=== PATIENT | male | born 1945 | race African-American/Black ===

== ENCOUNTER 2017-07-13 14:11 | Emergency (ER) | payer OTHER, MEDICARE ==
--- NOTE | 2017-07-13 14:39 | ER Document Report ---
ED Medical Screen (RME) - General Chief Complaint: Arm Pain Stated Complaint: LEFT ARM PAIN Time Seen by Provider: 07/13/17 14:35 Mode of Arrival: Ambulatory Information source: Patient TRAVEL OUTSIDE OF THE [place] IN LAST 30 DAYS: No - HPI Patient complains to provider of: left arm pain Notes: 07/13/17 14:37 Patient is here with complaints of left arm pain. States the pain is been present for about 5 days now. He denies any specific injury or trauma to the arm. He was seen in urgent care and had x-rays which he states were negative. He was given Flexeril and Neurontin, but states the pain seems to be getting worse. No chest pain or shortness of breath. No fever. Physical exam: No distress. Normal pulse and sensation to the left upper extremity. An initial examination was made on the patient as part of the triage process, and it was determined a more comprehensive evaluation was necessary. Initial labs were ordered and patient was transferred to another provider in the ED who assumed care and finished evaluation and plan. - Related Data Allergies/Adverse Reactions: CLOROX BLEACH Adverse Reaction (Uncoded 05/15/15 08:24) Generalized Itching DETERGENTS Adverse Reaction (Uncoded 05/15/15 08:24) Generalized Itching Past Medical History - Past Medical History Cardiac Medical History: Reports: Hx Coronary Artery Disease - HIGH CHOLESTEROL , Hx Hypercholesterolemia, Hx Hypertension - [place] Denies: Hx Heart Attack Pulmonary Medical History: Denies: Hx Asthma, Hx Bronchitis, Hx COPD, Hx Pneumonia Neurological Medical History: Denies: Hx Cerebrovascular Accident, Hx Seizures Endocrine Medical History: Reports: Hx Diabetes Mellitus Type 2 GI Medical History: Reports: Hx Diverticulitis Musculoskeltal Medical History: Denies Hx Arthritis Psychiatric Medical History: Reports: Hx Depression, Hx Schizophrenia - Immunizations Hx Diphtheria, Pertussis, Tetanus Vaccination: Yes Physical Exam - Vital signs Vitals: Temp Pulse Resp BP Pulse Ox 98.6 F 80 16 150/74 H 94 07/13/17 14:16 07/13/17 14:16 07/13/17 14:16 07/13/17 14:16 07/13/17 14:16 Course - Vital Signs Vital signs: Temp Pulse Resp BP Pulse Ox 98.6 F 80 16 150/74 H 94 07/13/17 14:16 07/13/17 14:16 07/13/17 14:16 07/13/17 14:16 07/13/17 14:16
[2017-07-13] MEDS ORDERED: ASPIRIN 81 MG TABLET, CHEWABLE PO ONE (15:19)
[2017-07-13] MEDS ORDERED: HYDROCODONE/ACETAMINOPHEN 5-325 MG TABLET PO ONE (15:20)
--- NOTE | 2017-07-13 15:28 | ER Document Report ---
ED Extremity Problem, Upper - General Chief Complaint: Arm Pain Stated Complaint: LEFT ARM PAIN Time Seen by Provider: 07/13/17 14:35 Mode of Arrival: Ambulatory Information source: Patient Notes: Patient presents complaining of left shoulder and upper arm pain for the past 5 days. Patient states that in the past he has had occasional left shoulder pain. Patient denies any injury. Patient denies any chest pain or shortness of breath. Patient states that he did go to an urgent care 3 days ago was given a prescription for gabapentin. Patient denies any improvement of his symptoms. TRAVEL OUTSIDE OF THE [place] IN LAST 30 DAYS: No - HPI Patient complains to provider of: Pain, Left, Shoulder Onset: Other - 5 days Recent injury: No Quality of pain: Achy Severity of pain: Still present Pain Level: 5 Associated symptoms: denies: Chest pain/discomfort, Hurts to breathe, Nausea, Neck pain, Short of breath, Vomiting Exacerbated by: Movement Relieved by: Rest Similar symptoms previously: Yes Recently seen / treated by doctor: Yes - Related Data Allergies/Adverse Reactions: CLOROX BLEACH Adverse Reaction (Uncoded 05/15/15 08:24) Generalized Itching DETERGENTS Adverse Reaction (Uncoded 05/15/15 08:24) Generalized Itching Past Medical History - General Information source: Patient - Social History Smoking Status: Current Every Day Smoker Smoking Education Provided: Yes Frequency of alcohol use: None Drug Abuse: None Occupation: none Lives with: Family Family History: Reviewed & Not Pertinent Patient has suicidal ideation: No Patient has homicidal ideation: No - Past Medical History Cardiac Medical History: Reports: Hx Hypercholesterolemia, Hx Hypertension Denies: Hx Heart Attack Pulmonary Medical History: Denies: Hx Asthma, Hx Bronchitis, Hx COPD, Hx Pneumonia Neurological Medical History: Denies: Hx Cerebrovascular Accident, Hx Seizures Endocrine Medical History: Reports: Hx Diabetes Mellitus Type 2 Renal/ Medical History: Denies: Hx Peritoneal Dialysis Malignancy Medical History: Reports Other - gastric GI Medical History: Reports: Hx Diverticulitis Musculoskeltal Medical History: Denies Hx Arthritis Psychiatric Medical History: Reports: Hx Depression, Hx Schizophrenia Past Surgical History: Reports: Hx Bowel Surgery - Splenectomy, stomach tumor removed, portion of pancreas removed - Immunizations Hx Diphtheria, Pertussis, Tetanus Vaccination: Yes Review of Systems - Review of Systems Constitutional: No symptoms reported. denies: Fever EENT: No symptoms reported Cardiovascular: No symptoms reported. denies: Chest pain, Dizziness Respiratory: No symptoms reported. denies: Cough, Short of breath Gastrointestinal: No symptoms reported. denies: Abdominal pain, Nausea, Vomiting Genitourinary: No symptoms reported Male Genitourinary: No symptoms reported Musculoskeletal: Joint pain - left shoulder, Muscle pain - LUE. denies: Back pain Skin: No symptoms reported Hematologic/Lymphatic: No symptoms reported Neurological/Psychological: No symptoms reported Physical Exam - Vital signs Vitals: Temp Pulse Resp BP Pulse Ox 98.6 F 80 16 150/74 H 94 07/13/17 14:16 07/13/17 14:16 07/13/17 14:16 07/13/17 14:16 07/13/17 14:16 - General General appearance: Appears well, Alert In distress: None - HEENT Head: Normocephalic, Atraumatic Eyes: Normal Conjunctiva: Normal Nasal: Normal Mouth/Lips: Normal Mucous membranes: Normal Neck: Normal, Supple. No: Lymphadenopathy - Respiratory Respiratory status: No respiratory distress Chest status: Nontender Breath sounds: Normal. No: Rales, Rhonchi, Stridor, Wheezing Chest palpation: Normal - Cardiovascular Rhythm: Regular Heart sounds: S1 appreciated, S2 appreciated Murmur: No Pulses: Normal: Radial - Abdominal Inspection: Normal Distension: No distension Bowel sounds: Normal Tenderness: Nontender - Back Back: Normal, Nontender. No: CVA tenderness, Vertebra tenderness - Extremities General upper extremity: Tender - r shoulder, Normal strength General lower extremity: Normal inspection, Normal strength Shoulder: Tender. No: Dislocation Arm: Tender - Left shoulder generalized tenderness left upper arm tenderness, pain reproduced with extension, abduction of shoulder and with crossing arm across his chest.. No: Deformity Elbow: Normal, Nontender Forearm: Normal, Nontender Wrist: Normal, Nontender - Neurological Neuro grossly intact: Yes Cognition: Normal Mindy Coma Scale Eye Opening: Spontaneous Mindy Coma Scale Verbal: Oriented [place] Coma Scale Motor: Obeys Commands [place] Coma Scale Total: 15 - Psychological Associated symptoms: Normal affect, Normal mood - Skin Skin Temperature: Warm Skin Moisture: Dry Skin Color: Normal Course - Re-evaluation Re-evalutation: 07/13/17 16:59 Patient's x-ray with arthritic findings involving his left shoulder joint. Patient without any chest pain, dyspnea, or back tenderness. The patient has left arm pain that is not suggestive of pulmonary embolus, cardiac ischemia, aortic dissection, or other serious etiology. Given the extremely low risk of these diagnoses for the test in evaluation for these possibilities does not appear to be indicated at this time. Patient has been instructed to return if the symptoms worsen or change in any way. - Vital Signs Vital signs: Temp Pulse Resp BP Pulse Ox 98.6 F 80 16 150/74 H 94 07/13/17 14:16 07/13/17 14:16 07/13/17 14:16 07/13/17 14:16 07/13/17 14:16 - Laboratory Result Diagrams: 07/13/17 15:30 07/13/17 15:30 Laboratory results interpreted by me: 07/13/17 07/13/17 15:30 15:30 WBC 11.3 H RDW 14.9 H Carbon Dioxide 31 H Glucose 148 H Labs- Entire Visit 07/13/17 07/13/17 07/13/17 15:30 15:30 15:30 WBC 11.3 H RBC 4.92 Hgb 14.2 Hct 42.5 MCV 86 MCH 29.0 MCHC 33.5 RDW 14.9 H Plt Count 415 Seg Neutrophils % 51.8 Lymphocytes % 37.7 Monocytes % 6.1 Eosinophils % 2.8 Basophils % 1.6 Absolute Neutrophils 5.9 Absolute Lymphocytes 4.3 Absolute Monocytes 0.7 Absolute Eosinophils 0.3 Absolute Basophils 0.2 Sodium 141.3 Potassium 3.8 Chloride 100 Carbon Dioxide 31 H Anion Gap 10 BUN 20 Creatinine 1.02 Est GFR ( Amer) > 60 Est GFR (Non-Af Amer) > 60 Glucose 148 H Calcium 9.5 Magnesium 1.7 Total Bilirubin 0.3 Direct Bilirubin 0.3 Neonat Total Bilirubin Not Reportable Neonat Direct Bilirubin Not Reportable Neonat Indirect Bili Not Reportable AST 38 ALT 33 Alkaline Phosphatase 83 Troponin I 0.014 Total Protein 7.5 Albumin 4.2 - Diagnostic Test Radiology reviewed: Reports reviewed Discharge - Discharge Clinical Impression: Arthritis Left shoulder pain Qualifiers: Chronicity: unspecified Qualified Code(s): M25.512 - Pain in left shoulder Condition: Stable Disposition: HOME, SELF-CARE Instructions: Arthritis ([facility]), Oral Narcotic Medication ([facility]) Additional Instructions: Return immediately for any new or worsening symptoms Followup with your primary care provider, call tomorrow to make a followup appointment Follow-up with orthopedic doctor for further evaluation of shoulder joint pain Prescriptions: Hydrocodone/Acetaminophen [Isabella 5-325 Tablet] 1 each PO Q8 PRN #12 tablet PRN Reason: Forms: Smoking Cessation Education Referrals: OBED GILBERT MD [Primary Care Provider] - Follow up tomorrow [facility] [Provider Group] - Follow up as needed
[2017-07-13 15:59] LABS: ABSOLUTE BASOPHILS # (AUTO) 0.2 10^3/uL (0.0-0.2); ABSOLUTE EOSINOPHILS # (AUTO) 0.3 10^3/uL (0.0-0.6); ABSOLUTE LYMPHOCYTES (AUTO) 4.3 10^3/uL (0.5-4.7); ABSOLUTE MONOCYTES (AUTO) 0.7 10^3/uL (0.1-1.4); ABSOLUTE NEUT (AUTO) 5.9 10^3/uL (1.7-8.2); BASOPHILS % (AUTO) 1.6 % (0-2); EOSINOPHILS % (AUTO) 2.8 % (0-6); HEMATOCRIT 42.5 % (37.9-51.0); HEMOGLOBIN 14.2 g/dL (13.5-17.0); LYMPHOCYTES % (AUTO) 37.7 % (13-45); MEAN CORPUSCULAR HGB CONC 33.5 g/dL (32.0-36.0); MEAN CORPUSCULAR VOLUME 86 fl (80-97); MONOCYTES % (AUTO) 6.1 % (3-13); PLATELET COUNT 415 10^3/uL (150-450); RED BLOOD COUNT 4.92 10^6/uL (4.35-5.55); RED CELL DISTRIBUTION WIDTH 14.9 % (11.5-14.0); SEGMENTED NEUTROPHILS % (AUTO) 51.8 % (42-78); TOTAL CELLS COUNTED % (AUTO) 100 %; WHITE BLOOD COUNT 11.3 10^3/uL (4.0-10.5)
--- NOTE | 2017-07-13 16:06 | RADIOLOGY REPORT (SQ) ---
EXAM DESCRIPTION: CHEST 2 VIEWS COMPLETED DATE/TIME: 07/13/2017 3:39 pm REASON FOR STUDY: left arm pain COMPARISON: November 2013 EXAM PARAMETERS: NUMBER OF VIEWS: two views TECHNIQUE: Digital Frontal and Lateral radiographic views of the chest acquired. RADIATION DOSE: NA LIMITATIONS: none FINDINGS: LUNGS AND PLEURA: No opacities, masses or pneumothorax. No pleural effusion. MEDIASTINUM AND HILAR STRUCTURES: No masses or contour abnormalities. HEART AND VASCULAR STRUCTURES: Heart normal size. No evidence for failure. BONES: No acute findings. HARDWARE: None in the chest. OTHER: No other significant finding. IMPRESSION: NO ACUTE RADIOGRAPHIC FINDING IN THE CHEST. TECHNICAL DOCUMENTATION: JOB ID: [id number] [employer]- All Rights Reserved Reading location - IP/workstation name: [email or web address]
--- NOTE | 2017-07-13 16:07 | RADIOLOGY REPORT (SQ) ---
EXAM DESCRIPTION: SHOULDER LEFT 2 OR MORE VIEWS COMPLETED DATE/TIME: 07/13/2017 3:39 pm REASON FOR STUDY: left shoulder pain COMPARISON: None. NUMBER OF VIEWS: Three view. TECHNIQUE: Internal rotation, external rotation, and Y view images acquired of the left shoulder. LIMITATIONS: None. FINDINGS: Mild AC joint arthropathy. Glenohumeral joint is intact. Several loose bodies overlying the glenohumeral joint. IMPRESSION: AC and glenohumeral joint arthropathy. Loose bodies. TECHNICAL DOCUMENTATION: JOB ID: [id number] [employer]- All Rights Reserved Reading location - IP/workstation name: [email or web address]
[2017-07-13 16:31] LABS: ALANINE AMINOTRANSFERASE 33 U/L (21-72); ALBUMIN 4.2 g/dL (3.5-5.0); ALKALINE PHOSPHATASE 83 U/L (38-126); ANION GAP 10 (5-19); ASPARTATE AMINO TRANSFERASE 38 U/L (17-59); BILIRUBIN,DIRECT 0.3 mg/dL (0.0-0.4); BILIRUBIN,TOTAL 0.3 mg/dL (0.2-1.3); BLOOD UREA NITROGEN 20 mg/dL (7-20); CALCIUM 9.5 mg/dL (8.4-10.2); CARBON DIOXIDE 31 mmol/L (22-30); CHLORIDE 100 mmol/L (98-107); GLUCOSE 148 mg/dL (75-110); POTASSIUM 3.8 mmol/L (3.6-5.0); SODIUM 141.3 mmol/L (137-145); TOTAL PROTEIN 7.5 g/dL (6.3-8.2)
[2017-07-13 17:20] VITALS: BP 146/73
--- NOTE | 2017-07-13 19:25 | EKG REPORT ---
SEVERITY:- BORDERLINE ECG - SINUS RHYTHM LEFT AXIS DEVIATION BORDERLINE T WAVE ABNORMALITIES : Confirmed by: Tian Forrester MD 13-Jul-2017 19:25:04
== END 2017-07-13 17:20 | disposition home or self-care (01) ==
LOC: ER 14:11
DX: M25.512 Pain in left shoulder (principal); M19.90 Unspecified osteoarthritis, unspecified site; F17.200 Nicotine dependence, unspecified, uncomplicated; E78.00 Pure hypercholesterolemia, unspecified; I10 Essential (primary) hypertension; E11.9 Type 2 diabetes mellitus without complications
CPT/HCPCS: 36415; 71046; 80053; 83735; 84484; 85025; 93005; 93010; 99284

== ENCOUNTER → 2017-10-16 | Outpatient (CLI) | payer OTHER, MEDICARE | LOC: OD 11:35 | PROVIDERS: ATTEND Internal Medicine Medical Oncology | DX: Z85.09 Personal history of malignant neoplasm of other digestive organs (principal); Z90.81 Acquired absence of spleen ==

== ENCOUNTER 2018-02-15 08:43 | Day surgery (SDC) | payer OTHER, MEDICARE ==
[~2018-02-15 08:43] MED LIST: KETOROLAC TROMETHAMINE 0.45% 4 DROP/0.4 ML DROPERETTE OD PRN
[2018-02-15] MEDS ORDERED: EPINEPHRINE INJ/PF 1 MG/1 ML AMPULE ONE (08:47)
[2018-02-15] MEDS ORDERED: LIDOCAINE 1%/PHENYLEPHRINE 1.5% 1 ML VIAL ONE (08:47)
[2018-02-15] MEDS ORDERED: CHONDR SU A NA/HYALUR INTRAOC KIT (SURGICARE) ONE (08:47)
[2018-02-15] MEDS ORDERED: MIDAZOLAM 2 MG/2 ML INJ ONE (09:00)
[2018-02-15] MEDS: TROPICAMIDE 1% OPH SOLN 3 ML OD PRN ×3 (09:27→09:47)
[2018-02-15] MEDS: CYCLOPENTOLATE 0.2%/PHENYLEPHRINE 1% OPH SOLN 2 ML OD PRN ×3 (09:27→09:47)
[2018-02-15] MEDS: BESIFLOXACIN HCL 0.6% OPH SUSP 5 ML BOTTLE OD PRN ×4 (09:27→10:31)
[2018-02-15] MEDS: TETRACAINE HCL 0.5% OPH SOLN 4 ML OD PRN ×3 (09:28→10:08)
[2018-02-15] MEDS ORDERED: TRYPAN BLUE 0.06 % OPH SOLN 0.5 ML DISP.SYRIN ONE (11:24)
--- NOTE | 2018-02-16 07:37 | [facility] OPERATIVE REPORT E ---
[facility] Operative Report NAME: BAYLEE DE LA O AGE: 72Y DATE OF SURGERY: 02/15/2018 ROOM: PREOPERATIVE DIAGNOSIS: CATARACT, RIGHT EYE. POSTOPERATIVE DIAGNOSIS: CATARACT, RIGHT EYE. OPERATION: Cataract extraction with insertion of an IOL of the right eye. SURGEON: WANG TORRES M.D. ANESTHESIA: Topical. PROCEDURE: After obtaining appropriate consent, the patient's right eye was prepped and draped in sterile fashion as well as the surgeon in a sterile manner and cataract surgery was started. First a paracentesis blade was used to make a side-port incision. Viscoelastic was used to inflate the anterior chamber. Next a 2.4 mm incision was made with a 2.4 mm blade, clear corneal temporally. A continuous capsulorrhexis was made using a cystotome and Utrata forceps. Following this hydrodissection was carried out to make the lens fully loose and mobile and it was rotated 90 degrees. Following this, a sxzdie-tuq-lwqsowi technique was used to phacoemulsify the lens with a CDE of 6.45. The remaining cortex was removed with irrigation/aspiration. Provisc was instilled into the capsular bag to inflate the bag. A SN60WF, 20.0 diopter lens was placed. The remaining viscoelastic material was removed with irrigation/aspiration. Following this, the incision was found to be watertight. Besivance was instilled into the eye and a protective shield was placed over the eye. The patient returned to the postoperative recovery in stable condition. DICTATING PHYSICIAN: WANG TORRES M.D. [id number] PHY#: [id number] 1941 ID: [id number] JOB#: [id number] ACCT: [id number] cc:WANG TORRES M.D. >
--- NOTE | 2018-02-16 07:43 | [facility] DISCHARGE SUMMARY E ---
[facility] Discharge Summary NAME: BAYLEE DE LA O AGE: 72Y ADMITTED: 02/15/2018 DISCHARGED: 02/15/2018 HISTORY: This is a 72-year-old patient who underwent complex cataract extraction of the right eye with the use of Trypan blue dye. He underwent complex cataract extraction due to poor visualization of the anterior capsule due to dense cortical spoking. DIAGNOSIS: Other age-related cataract of the right eye. HOSPITAL COURSE: He underwent surgery because he was having difficulty driving at night secondary to glare from headlights. DISCHARGE INSTRUCTIONS: He should be on a regular diet. No bending at his waist. No heavy lifting. He should use his Vigamox, Ketorolac, and Predforte at 3 p.m. and 8 p.m. and sleep with a rigid shield, and I will see him for his one day postoperative tomorrow. DICTATING PHYSICIAN: WANG TORRES M.D. [id number] PHY#: [id number] 1941 ID: [id number] JOB#: [id number] ACCT: [id number] cc:WANG TORRES M.D. >
--- NOTE | 2018-02-20 13:34 | [facility] DISCHARGE SUMMARY E ---
[facility] Discharge Summary NAME: BAYLEE DE LA O AGE: 72Y ADMITTED: 02/15/2018 DISCHARGED: 02/15/2018 ADDENDUM: Other age-related cataract of the right eye. PROCEDURE: Complex cataract extraction with use of Trypan blue dye. DESCRIPTION OF PROCEDURE: Prior to making the capsulorrhexis, Trypan blue dye was used to stain the anterior capsule due to poor visualization of the anterior capsule. DICTATING PHYSICIAN: WANG TORRES M.D. [id number] PHY#: [id number] 1941 ID: [id number] JOB#: [id number] ACCT: [id number] cc:WANG TORRES M.D. >
== END 2018-02-15 11:16 | disposition home or self-care (01) ==
LOC: SC 08:43
PROVIDERS: ATTEND Internal Medicine
DX: H25.89 Other age-related cataract (principal); H04.123 Dry eye syndrome of bilateral lacrimal glands; H52.4 Presbyopia; E11.9 Type 2 diabetes mellitus without complications; I10 Essential (primary) hypertension; E78.00 Pure hypercholesterolemia, unspecified; K21.9 Gastro-esophageal reflux disease without esophagitis; M19.90 Unspecified osteoarthritis, unspecified site; R01.1 Cardiac murmur, unspecified; F17.210 Nicotine dependence, cigarettes, uncomplicated; Z79.899 Other long term (current) drug therapy; I20.9 Angina pectoris, unspecified; Z85.07 Personal history of malignant neoplasm of pancreas
CPT/HCPCS: 66982; 82962; V2632; J2250; J3490 ×3; J0171; J2370

== ENCOUNTER 2018-03-08 08:55 | Day surgery (SDC) | payer OTHER, MEDICARE ==
[~2018-03-08 08:55] MED LIST changes: -KETOROLAC TROMETHAMINE 0.45% 4 DROP/0.4 ML DROPERETTE OD PRN; +KETOROLAC TROMETHAMINE 0.45% 4 DROP/0.4 ML DROPERETTE OS PRN; +MIDAZOLAM 2 MG/2 ML INJ ONE
[2018-03-08] MEDS: BESIFLOXACIN HCL 0.6% OPH SUSP 5 ML BOTTLE OS PRN ×4 (09:30→10:19)
[2018-03-08] MEDS: CYCLOPENTOLATE 0.2%/PHENYLEPHRINE 1% OPH SOLN 2 ML OS PRN ×3 (09:30→09:50)
[2018-03-08] MEDS: TROPICAMIDE 1% OPH SOLN 3 ML OS PRN ×3 (09:30→09:51)
[2018-03-08] MEDS: TETRACAINE HCL 0.5% OPH SOLN 4 ML OS PRN ×4 (09:30→10:00)
[2018-03-08] MEDS ORDERED: TRYPAN BLUE 0.06 % OPH SOLN 0.5 ML DISP.SYRIN ONE (09:44)
[2018-03-08] MEDS: LIDOCAINE 1%/PHENYLEPHRINE 1.5% 1 ML VIAL ONE ×2 (10:00→10:10)
[2018-03-08] MEDS: EPINEPHRINE INJ/PF 1 MG/1 ML AMPULE ONE ×2 (10:01→10:10)
[2018-03-08] MEDS: CHONDR SU A NA/HYALUR INTRAOC KIT (SURGICARE) ONE ×2 (10:01→10:10)
--- NOTE | 2018-03-09 11:54 | [facility] DISCHARGE SUMMARY E ---
[facility] Discharge Summary NAME: BAYLEE DE LA O AGE: 72Y ADMITTED: 03/08/2018 DISCHARGED: 03/08/2018 HISTORY: This is a 72-year-old male who underwent cataract extraction of the left eye. DIAGNOSIS: Cataract, left eye. HOSPITAL COURSE: He underwent surgery because he was having difficulty driving at night secondary to glare from headlights and difficulty reading small print. He is to be on a regular diet. No bending at his waist. No heavy lifting. He should use his Vigamox, Acular, and Predforte at 3 p.m. and 8 p.m. and sleep with a rigid shield, and I will see him for his 1 day postoperative tomorrow. DICTATING PHYSICIAN: WANG TORRES M.D. [id number] PHY#: [id number] 2010 ID: [id number] JOB#: [id number] ACCT: [id number] cc:WANG TORRES M.D. >
--- NOTE | 2018-03-09 11:54 | [facility] OPERATIVE REPORT E ---
[facility] Operative Report NAME: BAYLEE DE LA O AGE: 72Y DATE OF SURGERY: 03/08/2018 ROOM: PREOPERATIVE DIAGNOSIS: CATARACT, LEFT EYE. POSTOPERATIVE DIAGNOSIS: CATARACT, LEFT EYE. OPERATION: Cataract extraction with insertion of an IOL of the left eye. SURGEON: WANG TORRES M.D. ANESTHESIA: Topical. PROCEDURE: After obtaining appropriate consent, the patient's left eye was prepped and draped in sterile fashion as well as the surgeon in a sterile manner and cataract surgery was started. First a paracentesis blade was used to make a side-port incision. Viscoelastic was used to inflate the anterior chamber. Next a 2.4 mm incision was made with a 2.4 mm blade, clear corneal temporally. A continuous capsulorrhexis was made using a cystotome and Utrata forceps. Following this hydrodissection was carried out to make the lens fully loose and mobile and it was rotated 90 degrees. Following this, a hrseay-lgu-unuzfai technique was used to phacoemulsify the lens with a CDE of 8.09. The remaining cortex was removed with irrigation/aspiration. Provisc was instilled into the capsular bag to inflate the bag. A SN60WF, 19.5 diopter lens was placed. The remaining viscoelastic material was removed with irrigation/aspiration. Following this, the incision was found to be watertight. Besivance was instilled into the eye and a protective shield was placed over the eye. The patient returned to the postoperative recovery in stable condition. DICTATING PHYSICIAN: WANG TORRES M.D. [id number] PHY#: [id number] 2010 ID: [id number] JOB#: [id number] ACCT: [id number] cc:WANG TORRES M.D. >
== END 2018-03-08 11:09 | disposition home or self-care (01) ==
LOC: SC 08:55
PROVIDERS: ATTEND Internal Medicine
DX: H25.89 Other age-related cataract (principal); Z96.1 Presence of intraocular lens; F17.210 Nicotine dependence, cigarettes, uncomplicated; I10 Essential (primary) hypertension; K21.9 Gastro-esophageal reflux disease without esophagitis; E11.9 Type 2 diabetes mellitus without complications; I47.1 Supraventricular tachycardia; Z79.4 Long term (current) use of insulin; Z79.82 Long term (current) use of aspirin; Z79.899 Other long term (current) drug therapy
CPT/HCPCS: 66984; 82962; V2632; J2250; J3490 ×3; J0171; J2370; 142

== ENCOUNTER → 2018-05-07 | Outpatient (CLI) | payer MEDICARE, OTHER ==
--- NOTE | 2018-05-07 09:51 | RADIOLOGY REPORT (SQ) ---
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 Images reviewed with lung, soft tissue and bone windows. Reconstructed coronal a nd sagittal MPR images reviewed. All images stored on PACS. CT scan of the abdomen and pelvis performed with intravenous and with oral contrastusing helical scan jose a technique with dynamic intravenous contrast injection. Images reviewed with lung, soft tissue a nd bone windows. Reconstructed coronal and sagittal MPR images reviewed. Delayed images for evaluat ion of the urinary system also acquired and evaluated. All images stored on PACS. All CT scanners at this facility use dose modulation, iterative reconstruction, and/or weight based d osing when appropriate to reduce radiation dose to as low as reasonably achievable (ALARA). [facility]: Dose Right [facility]: CareDose [facility]: Dose Right [facility]: Teradose 4D [facility]: [employer] RADIATION DOSE: CT Rad equipment meets quality standard of care and radiation dose reduction techniq ues were employed. CTDIvol: 6.9 - 8.2 mGy. DLP: 1131 mGy-cm. . LIMITATIONS: None. FINDINGS: CHEST: LUNGS AND PLEURA: No opacities, nodules, masses. No pneumothorax. No effusions. HILAR AND MEDIASTINAL STRUCTURES: No identified masses or abnormal nodes. HEART AND VASCULAR STRUCTURES: No aneurysm or dissection. No central pulmonary emboli. No pericardi al effusion. Moderate coronary artery calcifications HARDWARE: None. THYROID AND OTHER SOFT TISSUES: Mild gynecomastia BONES: No significant finding. OTHER: Small hiatal hernia ABDOMEN AND PELVIS: LIVER: Fatty liver. No dilated ducts. Normal enhancement of the portal vein and hepatic veins. No masses SPLEEN: Splenectomy PANCREAS: No masses. No significant calcifications. No adjacent inflammation or peripancreatic fluid collections. Pancreatic duct not dilated. GALLBLADDER: No identified stones by CT criteria. No inflammatory changes to suggest cholecystitis. ADRENAL GLANDS: No significant masses or asymmetry. RIGHT KIDNEY AND URETER: No solid masses. No significant calcification. No hydronephrosis or hydroure ter. LEFT KIDNEY AND URETER: No solid masses. No significant calcification. No hydronephrosis or hydrouret er. AORTA AND VESSELS: No aneurysm. No dissection. Renal arteries, SMA, celiac origins calcified without high-grade stenosis. RETROPERITONEUM: No retroperitoneal adenopathy, hemorrhage or masses. BOWEL AND PERITONEAL CAVITY: Patient is post partial gastrectomy with a row of surgical salvador at t he stomach fundus. Patient drank oral contrast. No CT evidence of bowel obstruction or free intrape ritoneal air or fluid. Periampullary duodenum diverticulum. Descending and sigmoid colon diverticul i without CT signs of acute diverticulitis APPENDIX: Normal. ABDOMINAL WALL: No masses. No hernias. PELVIS: No mass or free fluid. Normal bladder. BONES: Degenerative changes in the lower lumbar facet joints OTHER: No other significant finding. IMPRESSION: Post partial gastrectomy and splenectomy No CT evidence of recurrent or metastatic gastrointestinal stromal tumor TECHNICAL DOCUMENTATION: JOB ID: [id number] Quality ID # [id number]: Final reports with documentation of one or more dose reduction techniques (e.g., Au tomated exposure control, adjustment of the mA and/or kV according to patient size, use of iterative reconstruction technique) 2010 [employer]- All Rights Reserved Reading location - IP/workstation name: [email or web address]
== END ==
LOC: RAD 07:38
PROVIDERS: ATTEND Internal Medicine Medical Oncology
DX: C49.A2 Gastrointestinal stromal tumor of stomach (principal); I25.10 Atherosclerotic heart disease of native coronary artery without angina pectoris; K44.9 Diaphragmatic hernia without obstruction or gangrene
CPT/HCPCS: 71260; 74177; 82565

== ENCOUNTER → 2019-02-12 | Outpatient (CLI) | payer MEDICARE, OTHER ==
--- NOTE | 2019-02-12 09:32 | RADIOLOGY REPORT (SQ) ---
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 Images reviewed with lung, soft tissue, and bone windows. Reconstructed coronal and sagittal MPR images reviewed. Delayed images for evaluat ion of the urinary system also acquired and evaluated. All images stored on PACS. All CT scanners at this facility use dose modulation, iterative reconstruc tion, and/or weight based dosing when appropriate to reduce radiation dose to as low as reasonably ac hievable (ALARA). [facility]: Dose Right [facility]: CareDose [facility]: Dose Right [facility]: Teradose 4D [facility]: R&V CONTRAST TYPE AND DOSE: contrast/concentration: Isovue 350.00 mg/ml; Total Contrast Delivered: 100.0 ml; Total Saline Delivered: 72.0 ml RENAL FUNCTION: Creatinine 1.2 RADIATION DOSE: CT Rad equipment meets quality standard of care and radiation dose reduction techniq ues were employed. CTDIvol: 12.3 - 12.4 mGy. DLP: 838 mGy-cm. . LIMITATIONS: None. FINDINGS: LOWER CHEST: No significant findings. No nodules or infiltrates. LIVER: Hepatic steatosis. No focal lesions. No intrahepatic ductal dilation. SPLEEN: Surgically absent. PANCREAS: No masses. No significant calcifications. No adjacent inflammation or peripancreatic fluid collections. Pancreatic duct not dilated. GALLBLADDER: No identified stones by CT criteria. No inflammatory changes to suggest cholecystitis. ADRENAL GLANDS: No significant masses or asymmetry. RIGHT KIDNEY AND URETER: No solid masses. No significant calcifications. No hydronephrosis or pro ximal hydroureter. LEFT KIDNEY AND URETER: No solid masses. No significant calcifications. No hydronephrosis or prox imal hydroureter. AORTA AND VESSELS: No aneurysm. No dissection. Renal arteries, SMA, celiac without stenosis. RETROPERITONEUM: No retroperitoneal adenopathy, hemorrhage or masses. BOWEL AND PERITONEAL CAVITY: Postsurgical changes from partial gastrectomy. No discrete focal bowel wall thickening. Scattered colonic diverticula. No evidence of intestinal obstruction. APPENDIX: Partially visualized ABDOMINAL WALL: No masses. Small fat containing umbilical hernia. BONES: No acute bony abnormality. No discrete lytic or blastic osseous lesions. Lower lumbar facet arthropathy. OTHER: No other significant finding. IMPRESSION: 1. Postsurgical changes from the splenectomy and partial gastrectomy. No evidence of r esidual or recurrent disease within the abdomen. 2. No evidence of acute intra-abdominal process. 3. Hepatic steatosis. TECHNICAL DOCUMENTATION: JOB ID: [id number] Quality ID # [id number]: Final reports with documentation of one or more dose reduction techniques (e.g., Au tomated exposure control, adjustment of the mA and/or kV according to patient size, use of iterative reconstruction technique) 2010 [employer]- All Rights Reserved Reading location - IP/workstation name: [email or web address]
== END ==
LOC: RAD 08:23
PROVIDERS: ATTEND Internal Medicine Hematology & Oncology
DX: C49.A0 Gastrointestinal stromal tumor, unspecified site (principal); K76.0 Fatty (change of) liver, not elsewhere classified
CPT/HCPCS: 74160; 82565

== ENCOUNTER 2019-05-11 21:48 | Inpatient (IN) | payer OTHER, MEDICARE ==
[2019-05-11 22:14] LABS: HEMATOCRIT 39.4 % (37.9-51.0); HEMOGLOBIN 13.1 g/dL (13.5-17.0); MEAN CORPUSCULAR HEMOGLOBIN 30.1 pg (27.0-33.4); MEAN CORPUSCULAR HGB CONC 33.2 g/dL (32.0-36.0); MEAN CORPUSCULAR VOLUME 91 fl (80-97); PLATELET COUNT 676 10^3/uL (150-450); RED BLOOD COUNT 4.35 10^6/uL (4.35-5.55); RED CELL DISTRIBUTION WIDTH 13.8 % (11.5-14.0); WHITE BLOOD COUNT 24.9 10^3/uL (4.0-10.5)
[2019-05-11 22:16] LABS: INTERNATIONAL RATION (INR) 1.04; PROTHROMBIN TIME 13.6 SEC (11.4-15.4)
[2019-05-11 22:30] LABS: ALBUMIN 4.1 g/dL (3.5-5.0); ALKALINE PHOSPHATASE 115 U/L (38-126); ANION GAP 11 (5-19); ASPARTATE AMINO TRANSFERASE 36 U/L (17-59); BILIRUBIN,DIRECT 0.1 mg/dL (0.0-0.4); BILIRUBIN,TOTAL 0.4 mg/dL (0.2-1.3); BLOOD UREA NITROGEN 17 mg/dL (7-20); CALCIUM 9.3 mg/dL (8.4-10.2); CARBON DIOXIDE 25 mmol/L (22-30); CHLORIDE 101 mmol/L (98-107); GLUCOSE 182 mg/dL (75-110); POTASSIUM 5.4 mmol/L (3.6-5.0); TOTAL PROTEIN 7.4 g/dL (6.3-8.2)
[2019-05-11 22:37] LABS: VENOUS BLOOD BASE EXCESS 0.5 mmol/L; VENOUS BLOOD HCO3 23.7 mmol/L (20-32); VENOUS BLOOD PCO2 34.1 mmHg (35-63); VENOUS BLOOD PH 7.46 (7.30-7.42)
[2019-05-11 22:47] LABS: ABSOLUTE LYMPHOCYTES# (MANUAL) 2.5 10^3/uL (0.5-4.7); ABSOLUTE MONOCYTES # (MANUAL) 0.5 10^3/uL (0.1-1.4); BASOPHILS % (MANUAL) 0 % (0-2); EOSINOPHILS % (MANUAL) 0 % (0-6); LYMPHOCYTES % (MANUAL) 6 % (13-45); MONOCYTES % (MANUAL) 2 % (3-13); SEGMENTED NEUTROPHILS % (MAN) 88 % (42-78); TOTAL CELLS COUNTED 100
[2019-05-11 22:49] LABS: OVALOCYTES SLIGHT; PLATELET COMMENT ADEQUATE; POIKILOCYTOSIS SLIGHT; TEAR DROP CELLS SLIGHT; TOXIC GRANULATION 1+; TOXIC VACUOLATION PRESENT
[2019-05-11] MEDS ORDERED: VANCOMYCIN HCL INJ 1000 MG VIAL IV ONE (23:44)
[2019-05-11] MEDS ORDERED: PIPERACILLIN/TAZOBACTAM 4.5 GM VIAL IV ONE (23:44)
[2019-05-11] MEDS ORDERED: NORMAL SALINE IV ONE (23:44)
--- NOTE | 2019-05-12 00:12 | ER Document Report ---
Entered by CLAUDIA PIZANO SCRIBE 05/11/19 [id number] Acting as scribe for:ARTHUR RICHMOND IV, MD ED GI/ - General Chief Complaint: Urinary Problem Stated Complaint: WEAKNESS Time Seen by Provider: 05/11/19 23:18 Mode of Arrival: Medic Information source: Patient Notes: This 73 year old male patient brought in by EMS presents to the ED today with complaints of urinary frequency and burning for the past x2-3 days. Patient states that he initially had a "good stream going, but it got worse and worse". Patient notes that he would stand for about x4-5 minutes trying to void and that towards the end, he felt pressure and then stinging/burning. Patient also reports fever, chills, and night sweats. Patient states that he had a prostate biopsy on 04/30/19 due to increased lab levels and has been having problems since. Patient states that he was "bed bound" for the first x2-3 days after the procedure with fevers and weakness. EMS reports that the patient had a temper ature of 101.9 en route and that they administered 975 mg Tylenol. Patient notes that has had abdominal tumor resection, splenectomy, and a partial pancreatectomy. TRAVEL OUTSIDE OF THE [place] IN LAST 30 DAYS: No - Related Data Allergies/Adverse Reactions: CLOROX BLEACH Adverse Reaction (Uncoded 03/08/18 09:39) Generalized Itching DETERGENTS Adverse Reaction (Uncoded 03/08/18 09:39) Generalized Itching Home Medications: lantus, atorvastatin, diltiazem, omeprazole, losartan Past Medical History - General Information source: Patient - Social History Smoking Status: Unknown if Ever Smoked Cigarette use (# per day): No Chew tobacco use (# tins/day): No Smoking Education Provided: No Family History: Reviewed & Not Pertinent Patient has suicidal ideation: No Patient has homicidal ideation: No - Past Medical History Cardiac Medical History: Reports: Hx Coronary Artery Disease - HIGH CHOLESTEROL, Hx Hypercholesterolemia, Hx Hypertension Endocrine Medical History: Reports: Hx Diabetes Mellitus Type 2 GI Medical History: Reports: Hx Diverticulitis Psychiatric Medical History: Reports: Hx Depression, Hx Schizophrenia Past Surgical History: Reports: Hx Abdominal Surgery - abdominal tumor removal, Hx Bowel Surgery - Splenectomy, Hx Pancreatic Surgery - partial removal - Immunizations Hx Diphtheria, Pertussis, Tetanus Vaccination: Yes Review of Systems - Review of Systems Constitutional: See HPI, Chills, Diaphoresis, Fever, Weakness EENT: No symptoms reported Cardiovascular: No symptoms reported Respiratory: No symptoms reported Gastrointestinal: No symptoms reported Genitourinary: See HPI, Burning, Frequency Male Genitourinary: No symptoms reported Musculoskeletal: No symptoms reported Skin: No symptoms reported Hematologic/Lymphatic: No symptoms reported Neurological/Psychological: No symptoms reported -: Yes All other systems reviewed and negative Physical Exam - Vital signs Vitals: Temp 101.7 F H 05/11/19 22:00 Interpretation: Febrile - General General appearance: Alert In distress: None - HEENT Head: Normocephalic, Atraumatic Eyes: Normal Pupils: PERRL - Respiratory Respiratory status: No respiratory distress Chest status: Nontender Breath sounds: Normal Chest palpation: Normal - Cardiovascular Rhythm: Regular Heart sounds: Normal auscultation Murmur: No Friction rub: No Gallop: None auscultated - Abdominal Inspection: Normal Distension: No distension Bowel sounds: Normal Tenderness: Nontender - Abdomen soft Organomegaly: No organomegaly - Back Back: Normal, Nontender - Extremities General upper extremity: Normal inspection General lower extremity: Normal inspection - Neurological Neuro grossly intact: Yes - AAOx3 - Psychological Associated symptoms: Normal affect, Normal mood - Skin Skin Temperature: Warm Skin Moisture: Dry Skin Color: Normal Course - Vital Signs Vital signs: Temp Pulse Resp BP Pulse Ox 100.0 F 16 134/62 H 96 05/12/19 03:08 05/12/19 00:01 05/12/19 00:01 05/12/19 00:01 - Laboratory Result Diagrams: 05/11/19 21:13 05/11/19 21:13 Laboratory results interpreted by me: 05/11/19 05/11/19 05/11/19 21:13 21:13 22:15 WBC 24.9 H Hgb 13.1 L Plt Count 676 H Seg Neuts % (Manual) 88 H Lymphocytes % (Manual) 6 L Monocytes % (Manual) 2 L Abs Neuts (Manual) 21.9 H VBG pH 7.46 H VBG pCO2 34.1 L Potassium 5.4 H Creatinine 1.37 H Est GFR (MDRD) Non-Af 51 L Glucose 182 H POC Glucose ALT 67 H Urine Protein Urine Glucose (UA) Urine Ketones Urine Blood Leukocyte Esterase Rfl Urine Ascorbic Acid 05/11/19 05/11/19 22:39 23:53 WBC Hgb Plt Count Seg Neuts % (Manual) Lymphocytes % (Manual) Monocytes % (Manual) Abs Neuts (Manual) VBG pH VBG pCO2 Potassium Creatinine Est GFR (MDRD) Non-Af Glucose POC Glucose 232 H ALT Urine Protein 100 H Urine Glucose (UA) 50 H Urine Ketones TRACE H Urine Blood LARGE H Leukocyte Esterase Rfl LARGE H Urine Ascorbic Acid 20 H - Consults dr. zunilda saldivar Time consulted: 03:10 Reason for consultation: 05/12/19 03:10 uti, leukocytosis Consulted provider: will come to ER Discharge - Discharge Clinical Impression: H/O splenectomy UTI (urinary tract infection) Qualifiers: Urinary tract infection type: site unspecified Hematuria presence: with hematuria Qualified Code(s): N39.0 - Urinary tract infection, site not specified Leukocytosis Qualifiers: Leukocytosis type: unspecified Qualified Code(s): D72.829 - Elevated white blood cell count, unspecified Condition: Good Disposition: ADMITTED INPATIENT Admitting Provider: Samaria (Hospitalist) Unit Admitted: Telemetry I personally performed the services described in the documentation, reviewed and edited the documentation which was dictated to the scribe in my presence, and it accurately records my words and actions.
--- NOTE | 2019-05-12 00:49 | RADIOLOGY REPORT (SQ) ---
EXAM DESCRIPTION: [facility]: XR CHEST 1 VIEW CLINICAL HISTORY: 73 years Male; weakness; COMPARISON: 07/13/2017 FINDINGS: Lungs: Lungs are clear, with no focal infiltrate, pneumothorax, or pleural effusion. Mediastinum: Mediastinum is within normal limits for this positioning. Bones: Bony structures are unremarkable. IMPRESSION: 1. No acute pulmonary findings.
[2019-05-12 01:35] LABS: APPEARANCE,URINE CLOUDY; BILIRUBIN,URINE NEGATIVE (NEGATIVE); COLOR,URINE YELLOW; GLUCOSE, URINE 50 mg/dL (NEGATIVE); KETONES,URINE TRACE mg/dL (NEGATIVE); PROTEIN,URINE 100 mg/dL (NEGATIVE); URINE SPECIFIC GRAVITY 1.025; UROBILINOGEN,URINE NEGATIVE mg/dL (<2.0)
[2019-05-12] MEDS ORDERED: PROMETHAZINE HCL INJ 25 MG/1 ML VIAL IV PRN (04:19)
[2019-05-12] MEDS ORDERED: MAGNESIUM HYDROXIDE SUSP 30 ML UDCUP PO PRN (04:19)
[2019-05-12] MEDS ORDERED: TEMAZEPAM 15 MG CAPSULE PO PRN (04:19)
[2019-05-12] MEDS ORDERED: MAG HYDROX/AL HYDROX/SIMETH SUSP 30 ML UDCUP PO PRN (04:19)
[2019-05-12] MEDS ORDERED: DEXTROSE 50%-WATER 25 GM/50 ML DISP.SYRIN IV PRN ×2 (04:27)
[2019-05-12] MEDS ORDERED: DEXTROSE 40% GEL 15 GM TUBE PO PRN ×2 (04:27)
[2019-05-12] MEDS ORDERED: GLUCAGON,HUMAN RECOMB 1 MG INJ IM PRN (04:27)
[2019-05-12] MEDS ORDERED: VANCOMYCIN HCL 0 MG in DEXTROSE 5%-WATER 250 ML IV NR (04:30)
--- NOTE | 2019-05-12 04:32 | PDOC H&P ---
History of Present Illness Admission Date/PCP: 05/12/19 03:24 [facility] Patient complains of: Burning with urination. Painful rectum. History of Present Illness: BAYLEE DE LA O is a 73 year old male with a 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 He underwent reanastomosis. He has a history of diabetes, hypertension, hyperlipidemia and had a prostate biopsy 2 weeks ago due to elevat ed PSA level. He began to feel quite weak yesterday. This went on to a stinging and burning sensation in his perineum. He had burning when he urinated and pain when he defecated. He defecated 2 hours post biopsy. Evaluation emergency department reveals a white blood cell count over 20,000 and a markedly positive urinalysis. The patient will be admitted for IV fluids and antibiotics. Past Medical History Cardiac Medical History: Reports: Coronary Artery Disease - HIGH CHOLESTEROL, Hyperlipidema, Hypertension Denies: Myocardial Infarction Pulmonary Medical History: Denies: Asthma, Bronchitis, Chronic Obstructive Pulmonary Disease (COPD), Pneumonia Neurological Medical History: Denies: Seizures Endocrine Medical History: Reports: Diabetes Mellitus Type 2 Renal/ Medical History: Reports: Other - Enlarged prostate GI Medical History: Reports: Diverticulitis Denies: Hepatitis, Hiatal Hernia Musculoskeltal Medical History: Denies: Arthritis Psychiatric Medical History: Reports: Depression Hematology: Denies: Anemia, Sickle Cell Disease Past Surgical History Past Surgical History: Reports: Splenectomy, Other - Partial gastrectomy, transrectal prostate biopsy Denies: Pacemaker Social History Information Source: Patient Lives with: Spouse/Significant other Smoking Status: Former Smoker Electronic Cigarette use?: No Frequency of Alcohol Use: Heavy Hx Recreational Drug Use: No Hx Prescription Drug Abuse: No - Advance Directive Resuscitation Status: Do Not Resuscitate Surrogate healthcare decision maker:: The patient's Family History Family History: CAD, DM, Hypertension, Malignancy Parental Family History Reviewed: Yes Children Family History Reviewed: Yes Sibling(s) Family History Reviewed.: Yes Medication/Allergy Home Medications: Atorvastatin Calcium [Lipitor 40 mg Tablet] 20 mg PO QHS 11/26/13 Insulin Glargine,Hum.rec.anlog [Lantus (Pyxis) Insulin 100 Unit/1 ml 10 ml] 34 unit SUBCUT QHS 11/26/13 Omeprazole 20 mg PO DAILY 05/14/15 Diltiazem HCl [Cardizem Cd 180 mg Capsule] 180 mg PO DAILY #30 capsule.cr 05/22/15 Losartan Potassium [Cozaar 50 mg Tablet] 50 mg PO DAILY #30 tablet 05/22/15 Insulin Aspart [Novolog Flexpen] 12 unit SQ Q12 05/12/19 Insulin Glargine,Hum.rec.anlog [Lantus Insulin 100 Unit/1 ml 10 ml] 32 unit SQ QAM 05/12/19 Allergies/Adverse Reactions: CLOROX BLEACH Adverse Reaction (Uncoded 03/08/18 09:39) Generalized Itching DETERGENTS Adverse Reaction (Uncoded 03/08/18 09:39) Generalized Itching Review of Systems All systems: reviewed and no additional remarkable complaints except as stated Gastrointestinal: PRESENT: other - Perineal and rectal burning pain Genitourinary: PRESENT: dysuria Physical Exam Vital Signs: Temp Pulse Resp BP Pulse Ox 99.9 F 16 134/62 H 96 05/12/19 04:19 05/12/19 00:01 05/12/19 00:01 05/12/19 00:01 Intake & Output 05/10/19 05/11/19 05/12/19 06:59 06:59 07:59 Weight 90.718 kg General appearance: PRESENT: cooperative, mild distress, well-developed Head exam: PRESENT: atraumatic, normocephalic Eye exam: PRESENT: conjunctiva pink, EOMI, PERRLA. ABSENT: scleral icterus Ear exam: PRESENT: normal external ear exam. ABSENT: bleeding, drainage Mouth exam: PRESENT: moist, neck supple, tongue midline Teeth exam: ABSENT: poor dentation Neck exam: PRESENT: full ROM. ABSENT: carotid bruit, JVD, lymphadenopathy Respiratory exam: PRESENT: symmetrical, unlabored. ABSENT: accessory muscle use, prolonged expiratory phas, rales, rhonchi, tachypnea, wheezes Cardiovascular exam: PRESENT: RRR, +S1, +S2, systolic murmur - 2/6 Pulses: PRESENT: normal radial pulses, normal dorsalis pedis pul GI/Abdominal exam: PRESENT: normal bowel sounds, soft, tenderness - In the suprapubic area. ABSENT: distended, guarding, mass Rectal exam: PRESENT: deferred Gentrourinary exam: ABSENT: indwelling catheter Extremities exam: ABSENT: joint swelling, pedal edema Musculoskeletal exam: PRESENT: ambulatory, full ROM, normal inspection. ABSENT: deformity Neurological exam: PRESENT: alert, awake, oriented to person, oriented to place, oriented to time, oriented to situation, CN II-XII grossly intact. ABSENT: altered, abnormal gait, motor sensory deficit Psychiatric exam: PRESENT: appropriate affect. ABSENT: agitated, anxious Focused psych exam: ABSENT: delusional, paranoid, restlessness Skin exam: PRESENT: dry, normal color, warm. ABSENT: rash Results Laboratory Results: 05/11/19 21:13 05/11/19 21:13 05/11/19 05/11/19 05/11/19 21:13 21:13 22:15 WBC 24.9 H RBC 4.35 Hgb 13.1 L Hct 39.4 MCV 91 MCH 30.1 MCHC 33.2 RDW 13.8 Plt Count 676 H Seg Neutrophils % Not Reportable VBG pH 7.46 H VBG pCO2 34.1 L VBG HCO3 23.7 VBG Base Excess 0.5 Sodium 137.2 Potassium 5.4 H Chloride 101 Carbon Dioxide 25 Anion Gap 11 BUN 17 Creatinine 1.37 H Est GFR ( Amer) > 60 Glucose 182 H Lactic Acid Calcium 9.3 Total Bilirubin 0.4 AST 36 Alkaline Phosphatase 115 Total Protein 7.4 Albumin 4.1 Urine Color Urine Appearance Urine pH Ur Specific [place] Urine Protein Urine Glucose (UA) Urine Ketones Urine Blood Urine RBC (Auto) 05/11/19 05/11/19 05/12/19 22:15 23:53 01:05 WBC RBC Hgb Hct MCV MCH MCHC RDW Plt Count Seg Neutrophils % VBG pH VBG pCO2 VBG HCO3 VBG Base Excess Sodium Potassium Chloride Carbon Dioxide Anion Gap BUN Creatinine Est GFR ( Amer) Glucose Lactic Acid 1.9 1.8 Calcium Total Bilirubin AST Alkaline Phosphatase Total Protein Albumin Urine Color YELLOW Urine Appearance CLOUDY Urine pH 5.0 Ur Specific [place] 1.025 Urine Protein 100 H Urine Glucose (UA) 50 H Urine Ketones TRACE H Urine Blood LARGE H Urine RBC (Auto) 66 05/11/19 21:13 Troponin I < 0.012 Impressions: Chest X-Ray 05/11/19 23:45 IMPRESSION: 1. No acute pulmonary findings. Assessment and Plan - Diagnosis (1) Leukocytosis Qualifiers: Leukocytosis type: unspecified Qualified Code(s): D72.829 - Elevated white blood cell count, unspecified Is this a current diagnosis for this admission?: Yes Plan: 05/12/2019 Elevated white blood cell count secondary to infection. Not only the urine but he may very well have prostatitis and likely has proctitis as the biopsy needle went through the rectum into the prostate. Will monitor with serial CBCs. (2) UTI (urinary tract infection) Qualifiers: Urinary tract infection type: site unspecified Hematuria presence: with hematuria Qualified Code(s): N39.0 - Urinary tract infection, site not specified; R31.9 - Hematuria, unspecified Is this a current diagnosis for this admission?: Yes Plan: 05/12/2019 Patient had a prostate biopsy. This is most likely an issue related to the biopsy. With his splenectomy we will cover with dual aggressive antibiotic therapy. Await culture results to identify any specific organism. (3) Proctitis Is this a current diagnosis for this admission?: Yes Plan: 05/12/2019 The patient describes a burning pain in the perineum and rectum. It is possible that there is infection at the prostate biopsy site. The broad-spectrum antibio tic therapy administered should easily cover organisms in the GI tract. (4) Diabetes Qualifiers: Diabetes mellitus type: type 2 Diabetes mellitus complication status: without complication Qualified Code(s): E11.9 - Type 2 diabetes mellitus without complications Is this a current diagnosis for this admission?: Yes Plan: 05/12/2019 We will continue the patient's Lantus. He will be on diabetic diet. He will also have Accu-Cheks and sliding scale coverage. (5) Hyperlipidemia Is this a current diagnosis for this admission?: Yes (6) Essential hypertension Is this a current diagnosis for this admission?: Yes Plan: 05/12/2019 Continue current medication regimen. Monitor the patient with serial vital signs. Adjust medications to keep systolic blood pressure between 120 and 130 and diastolic blood pressure less than 90. (7) PETRONA (acute kidney injury) Is this a current diagnosis for this admission?: Yes Plan: 05/12/2019 Likely due to poor intake as the patient has been feeling quite ill. He will be receiving IV fluids. We will recheck the serum creatinine and expect his function to return to normal. (8) Hyperkalemia Is this a current diagnosis for this admission?: Yes Plan: 05/12/2019 Secondary to the acute kidney injury. Should resolve with IV fluids. Will order serial chemistries. No Kayexalate at this time. In addition his insulin dosing should also help reduce potassium. - Time Time Spent with patient: 35 or more minutes Smoking Cessation Education: 3 to 10 minutes Medications reviewed and adjusted accordingly: Yes Anticipated discharge: Home - Inpatient Certification Based on my medical assessment, after consideration of the patient's comorbidities, presenting symptoms, or acuity I expect that the services needed warrant INPATIENT care.: Yes I certify that my determination is in accordance with my understanding of Medicare's requirements for reasonable and necessary INPATIENT services [42 CFR 412.3e].: Yes Medical Necessity: Need For IV Fluids, Need for IV Antibiotics Post Hospital Care: D/C Microcomputer Support Specialist Documentation
[2019-05-12] MEDS ORDERED: PIPERACILLIN/TAZOBACTAM 3.375 GM VIAL IV PRN (04:45)
[2019-05-12] MEDS: PANTOPRAZOLE SODIUM 20 MG TABLET.DR PO SCH (06:11)
[2019-05-12] MEDS: HEPARIN SOD (PORCINE) 5,000 UNIT/ML 1 ML VIAL SUBCUT SCH ×3 (06:11→21:38)
[2019-05-12] MEDS: PIPERACILLIN SODIUM/TAZOBACTAM 3.375 GM in NORMAL SALINE 100 ML IV SCH ×4 (06:16→23:21)
[2019-05-12] MEDS: ACETAMINOPHEN 325 MG TABLET PO PRN ×3 (07:18→23:30)
[2019-05-12] MEDS: INSULIN REG, HUMAN 100 UNIT/ML 3 ML VIAL (PYX) SUBCUT SCH ×4 (08:55→21:35)
--- NOTE | 2019-05-12 09:13 | EKG REPORT ---
SEVERITY:- ABNORMAL ECG - SINUS TACHYCARDIA ATRIAL PREMATURE COMPLEX : Confirmed by: Tian Forrester MD 12-May-2019 09:13:03
[2019-05-12] MEDS: DILTIAZEM HCL 180 MG CAPSULE.CR PO SCH (09:32)
[2019-05-12] MEDS: LOSARTAN POTASSIUM 50 MG TABLET PO SCH (09:32)
[2019-05-12] MEDS: DOCUSATE SODIUM 100 MG CAPSULE PO SCH ×2 (09:32→17:04)
[2019-05-12] MEDS: ASPIRIN 81 MG TABLET, ENT COATED PO SCH (09:32)
[2019-05-12] MEDS: RINGERS SOLUTION,LACTATED 1,000 ML IV PRN ×2 (10:31→17:06)
[2019-05-12] MEDS ORDERED: INSULIN GLARGINE,HUM.REC.ANLOG 1,000 UNIT/10 ML VIAL (PYX) SUBCUT ONE (21:10)
[2019-05-12] MEDS: VANCOMYCIN HCL 1,500 MG in DEXTROSE 5%-WATER 250 ML IV SCH (21:36)
[2019-05-12] MEDS: INSULIN GLARGINE,HUM.REC.ANLOG 1,000 UNIT/10 ML VIAL SUBCUT SCH (21:37)
[2019-05-12] MEDS: ATORVASTATIN CALCIUM 40 MG TABLET PO SCH (21:38)
[2019-05-12] MEDS ORDERED: INSULIN GLARGINE,HUM.REC.ANLOG 1,000 UNIT/10 ML VIAL SUBCUT SCH (22:00)
[2019-05-13] MEDS: RINGERS SOLUTION,LACTATED 1,000 ML IV PRN ×2 (02:58→10:14)
[2019-05-13] MEDS: HEPARIN SOD (PORCINE) 5,000 UNIT/ML 1 ML VIAL SUBCUT SCH ×3 (06:09→22:25)
[2019-05-13] MEDS: PANTOPRAZOLE SODIUM 20 MG TABLET.DR PO SCH (06:12)
[2019-05-13] MEDS: PIPERACILLIN SODIUM/TAZOBACTAM 3.375 GM in NORMAL SALINE 100 ML IV SCH ×2 (06:12→12:05)
[2019-05-13 06:19] LABS: HEMATOCRIT 36.9 % (37.9-51.0); HEMOGLOBIN 12.1 g/dL (13.5-17.0); MEAN CORPUSCULAR HGB CONC 32.8 g/dL (32.0-36.0); MEAN CORPUSCULAR VOLUME 91 fl (80-97); PLATELET COUNT 628 10^3/uL (150-450); RED BLOOD COUNT 4.04 10^6/uL (4.35-5.55); RED CELL DISTRIBUTION WIDTH 13.9 % (11.5-14.0)
[2019-05-13 06:33] LABS: ANION GAP 8 (5-19); BLOOD UREA NITROGEN 11 mg/dL (7-20); CALCIUM 9.3 mg/dL (8.4-10.2); CARBON DIOXIDE 28 mmol/L (22-30); CHLORIDE 101 mmol/L (98-107); GLUCOSE 119 mg/dL (75-110); POTASSIUM 4.6 mmol/L (3.6-5.0)
[2019-05-13 07:39] LABS: ABSOLUTE LYMPHOCYTES# (MANUAL) 3.1 10^3/uL (0.5-4.7); ABSOLUTE MONOCYTES # (MANUAL) 0.5 10^3/uL (0.1-1.4); BASOPHILS % (MANUAL) 0 % (0-2); EOSINOPHILS % (MANUAL) 0 % (0-6); LYMPHOCYTES % (MANUAL) 9 % (13-45); MONOCYTES % (MANUAL) 2 % (3-13); SEGMENTED NEUTROPHILS % (MAN) 86 % (42-78); TOTAL CELLS COUNTED 100
[2019-05-13 07:40] LABS: POLYCHROMASIA SLIGHT
[2019-05-13 07:41] LABS: PLATELET COMMENT INCREASED
[2019-05-13] MEDS: INSULIN REG, HUMAN 100 UNIT/ML 3 ML VIAL (PYX) SUBCUT SCH ×4 (07:42→22:20)
[2019-05-13] MEDS: LOSARTAN POTASSIUM 50 MG TABLET PO SCH (09:42)
[2019-05-13] MEDS: ASPIRIN 81 MG TABLET, ENT COATED PO SCH (09:42)
[2019-05-13] MEDS: DILTIAZEM HCL 180 MG CAPSULE.CR PO SCH (09:42)
[2019-05-13] MEDS: DOCUSATE SODIUM 100 MG CAPSULE PO SCH ×2 (09:42→17:38)
--- NOTE | 2019-05-13 12:32 | PDOC PROGRESS REPORT ---
Subjective Progress Note for:: 05/13/19 Subjective:: Patient states that he feels a lot better today compared to when he initially came in. Having some polyuria but he states that the volume which he urinates is a lot more than before when he was feeling like he only used to urinate very little amounts at a time. Denies any suprapubic fullness or distention. Denies abdominal pain at this time. Still complains of some pain in his perineum. Reason For Visit: UTI,PROSTATITIS,PROCTITIS,DIABETES MELLITUS,HYPERT Physical Exam Vital Signs: Temp Pulse Resp BP Pulse Ox 99.0 F 81 12 135/50 H 96 05/13/19 07:49 05/13/19 07:49 05/13/19 07:49 05/13/19 07:49 05/13/19 07:49 Intake & Output 05/12/19 05/13/19 05/14/19 06:59 06:59 06:59 Intake Total 3177 1000 Output Total Balance 3177 1000 Weight 91.3 kg General appearance: PRESENT: no acute distress Neck exam: ABSENT: JVD Respiratory exam: PRESENT: clear to auscultation lilia, unlabored. ABSENT: tachypnea, wheezes Cardiovascular exam: PRESENT: RRR, +S1, +S2. ABSENT: tachycardia GI/Abdominal exam: PRESENT: normal bowel sounds, soft. ABSENT: ascites, diminished bowel sounds, distended, firm, guarding, mass, rebound, rigid, tenderness Neurological exam: PRESENT: alert, awake, oriented to person, oriented to place, oriented to time Results Laboratory Results: 05/13/19 05:37 05/13/19 05:37 05/13/19 05/13/19 05:37 05:37 WBC 26.0 H RBC 4.04 L Hgb 12.1 L Hct 36.9 L MCV 91 MCH 30.0 MCHC 32.8 RDW 13.9 Plt Count 628 H Seg Neutrophils % Not Reportable Sodium 137.3 Potassium 4.6 Chloride 101 Carbon Dioxide 28 Anion Gap 8 BUN 11 Creatinine 1.24 Est GFR ( Amer) > 60 Glucose 119 H Calcium 9.3 Magnesium 2.1 05/11/19 21:13 Troponin I < 0.012 Impressions: Chest X-Ray 05/11/19 23:45 IMPRESSION: 1. No acute pulmonary findings. Assessment and Plan - Diagnosis (1) Acute prostatitis Is this a current diagnosis for this admission?: Yes Plan: Patient's UTI is likely indicative of acute prostatitis from recent procedural manipulation with transrectal prostate biopsy At this time, patient states that his urine is no longer muddy looking and looks more normal now. Patient feels better but leukocytosis continues to worsen patient was febrile once again this morning. As such, I will change antibiotics from Zosyn to meropenem. Will continue on vancomycin. Follow-up blood cultures and urine cultures. (2) Proctitis Is this a current diagnosis for this admission?: Yes Plan: Antibiotics as above (3) Essential hypertension Is this a current diagnosis for this admission?: Yes Plan: Continue current medication regimen. Monitor the patient with serial vital signs. (4) PETRONA (acute kidney injury) Is this a current diagnosis for this admission?: Yes Plan: Likely secondary to poor oral intake. PETRONA currently has resolved following IV fluid hydration. Hyperkalemia which is likely secondary to PETRONA has also resolved. Will DC IV fluids at this time and encourage p.o. hydration. (5) Diabetes Qualifiers: Diabetes mellitus type: type 2 Diabetes mellitus complication status: without complication Qualified Code(s): E11.9 - Type 2 diabetes mellitus without complications Is this a current diagnosis for this admission?: Yes Plan: We will continue the patient's Lantus. He will be on diabetic diet. He will also have Accu-Cheks and sliding scale coverage. - Time Time Spent with patient: 15-24 minutes
[2019-05-13] MEDS ORDERED: MEROPENEM 1 GM VIAL IV SCH (14:00)
[2019-05-13] MEDS: MEROPENEM 1 GM in NORMAL SALINE 50 ML IV SCH ×2 (15:09→21:11)
[2019-05-13] MEDS: FLUTICASONE NASAL SPRAY 50 MCG/SPRY 120 SPRAY/16 GM NASL SCH (22:20)
[2019-05-13] MEDS: ATORVASTATIN CALCIUM 40 MG TABLET PO SCH (22:21)
[2019-05-13] MEDS: INSULIN GLARGINE,HUM.REC.ANLOG 1,000 UNIT/10 ML VIAL SUBCUT SCH (22:22)
[2019-05-13] MEDS: VANCOMYCIN HCL 1,500 MG in DEXTROSE 5%-WATER 250 ML IV SCH (22:23)
[2019-05-14] MEDS: HEPARIN SOD (PORCINE) 5,000 UNIT/ML 1 ML VIAL SUBCUT SCH ×2 (05:17→13:27)
[2019-05-14] MEDS: PANTOPRAZOLE SODIUM 20 MG TABLET.DR PO SCH (05:19)
[2019-05-14] MEDS: MEROPENEM 1 GM in NORMAL SALINE 50 ML IV SCH ×2 (05:19→13:28)
[2019-05-14 05:50] LABS: ABSOLUTE BASOPHILS # (AUTO) 0.1 10^3/uL (0.0-0.2); ABSOLUTE EOSINOPHILS # (AUTO) 0.4 10^3/uL (0.0-0.6); ABSOLUTE LYMPHOCYTES (AUTO) 2.2 10^3/uL (0.5-4.7); ABSOLUTE MONOCYTES (AUTO) 0.5 10^3/uL (0.1-1.4); ABSOLUTE NEUT (AUTO) 13.4 10^3/uL (1.7-8.2); BASOPHILS % (AUTO) 0.8 % (0-2); EOSINOPHILS % (AUTO) 2.4 % (0-6); HEMATOCRIT 31.9 % (37.9-51.0); LYMPHOCYTES % (AUTO) 13.3 % (13-45); MEAN CORPUSCULAR HEMOGLOBIN 30.7 pg (27.0-33.4); MEAN CORPUSCULAR HGB CONC 34.4 g/dL (32.0-36.0); MEAN CORPUSCULAR VOLUME 89 fl (80-97); MONOCYTES % (AUTO) 3.3 % (3-13); PLATELET COUNT 600 10^3/uL (150-450); RED BLOOD COUNT 3.57 10^6/uL (4.35-5.55); RED CELL DISTRIBUTION WIDTH 13.5 % (11.5-14.0); SEGMENTED NEUTROPHILS % (AUTO) 80.2 % (42-78); TOTAL CELLS COUNTED % (AUTO) 100 %; WHITE BLOOD COUNT 16.7 10^3/uL (4.0-10.5)
[2019-05-14 06:07] LABS: ANION GAP 8 (5-19); BLOOD UREA NITROGEN 12 mg/dL (7-20); CALCIUM 8.8 mg/dL (8.4-10.2); CARBON DIOXIDE 28 mmol/L (22-30); CHLORIDE 101 mmol/L (98-107); GLUCOSE 101 mg/dL (75-110); POTASSIUM 4.5 mmol/L (3.6-5.0)
[2019-05-14] MEDS: INSULIN REG, HUMAN 100 UNIT/ML 3 ML VIAL (PYX) SUBCUT SCH ×2 (08:23→13:24)
[2019-05-14] MEDS: DILTIAZEM HCL 180 MG CAPSULE.CR PO SCH (10:12)
[2019-05-14] MEDS: LOSARTAN POTASSIUM 50 MG TABLET PO SCH (10:13)
[2019-05-14] MEDS: ASPIRIN 81 MG TABLET, ENT COATED PO SCH (10:13)
[2019-05-14] MEDS: DOCUSATE SODIUM 100 MG CAPSULE PO SCH (10:13)
[2019-05-14] MEDS: FLUTICASONE NASAL SPRAY 50 MCG/SPRY 120 SPRAY/16 GM NASL SCH (10:13)
--- NOTE | 2019-05-14 15:19 | PDOC DISCHARGE SUMMARY ---
Impression - Admit/DC Date/PCP Admission Date/Primary Care Provider: 05/12/19 03:24 [place] [facility] Discharge Date: 05/14/19 - Discharge Diagnosis (1) Acute prostatitis Is this a current diagnosis for this admission?: Yes (2) Proctitis Is this a current diagnosis for this admission?: Yes (3) Essential hypertension Is this a current diagnosis for this admission?: Yes (4) PETRONA (acute kidney injury) Is this a current diagnosis for this admission?: Yes (5) Diabetes Is this a current diagnosis for this admission?: Yes - Additional Information Resuscitation Status: Do Not Resuscitate Discharge Diet: As Tolerated Discharge Activity: Activity As Tolerated Referrals: HANK CASANOVA JR, MD [NO LOCAL MD] - 05/22/19 [facility] [Primary Care Provider] - Prescriptions: Sulfamethoxazole/Trimethoprim [Bactrim Ds Tablet] 1 each PO Q12 26 Days tablet Home Medications: Atorvastatin Calcium [Lipitor 40 mg Tablet] 20 mg PO QHS 11/26/13 Insulin Glargine,Hum.rec.anlog [Lantus (Pyxis) Insulin 100 Unit/1 ml 10 ml] 34 unit SUBCUT QHS 11/26/13 Omeprazole 20 mg PO DAILY 05/14/15 Diltiazem HCl [Cardizem Cd 180 mg Capsule] 180 mg PO DAILY #30 capsule.cr 05/22/15 Losartan Potassium [Cozaar 50 mg Tablet] 50 mg PO DAILY #30 tablet 05/22/15 Insulin Aspart [Novolog Flexpen] 12 unit SQ Q12 05/12/19 Insulin Glargine,Hum.rec.anlog [Lantus Insulin 100 Unit/1 ml 10 ml] 32 unit SQ QAM 05/12/19 Sulfamethoxazole/Trimethoprim [Bactrim Ds Tablet] 1 each PO Q12 26 Days tablet 05/14/19 History of Present Illiness History of Present Illness: BAYLEE DE LA O is a 73 year old male with a 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 He underwent reanastomosis. He has a history of diabetes, hypertension, hyperlipidemia and had a prostate biopsy 2 weeks ago due to elevated PSA level. He began to feel quite weak yesterday. This went on to a stinging and burning sensation in his perineum. He had burning when he urinated and pain when he defecated. He defecated 2 hours post biopsy. Evaluation emergency department reveals a white blood cell count over 20,000 and a markedly positive urinalysis. The patient will be admitted for IV fluids and antibiotics. Hospital Course Hospital Course: Patient was admitted with fevers. He had been worked up for that sources of infection including a chest x-ray which was negative. His main source of infection was suprapubic pain as well as perineal pain which had persisted since his recent prostate biopsy which was done transrectally. WBC was remarkable for significant leukocytosis of 24,000. Patient was started on broad-spectrum antibiotics IV. Urinalysis was positive and as such patient was suspected to have acute prostatitis with some mild proctitis. Urine culture grew E. coli which is susceptible to Bactrim. Patient has now been afebrile for over 24 hours and his blood cultures have been negative for over 48 hours. His leukocytosis has also down trended significantly from 26,000-16,000. E. coli sensitivities show excellent susceptibility to Bactrim but resistant to fluoroquinolones. Patient has felt very well since yesterday morning and will be discharged in stable conditions with Bactrim for the next 26 days to complete a four-week course of antibiotic treatment for acute prostatitis. Post void residual was also performed with bladder scan and was noted to have minimal residual. Patient encouraged to follow-up with his urologist for further care for which he already has an appointment. Physical Exam Vital Signs: Temp Pulse Resp BP Pulse Ox 98.0 F 73 16 125/56 L 99 05/14/19 12:43 05/14/19 12:43 05/14/19 12:43 05/14/19 12:43 05/14/19 12:43 Intake & Output 05/13/19 05/14/19 05/15/19 06:59 06:59 06:59 Intake Total 3177 3046 118 Balance 3177 3046 118 Weight 91.3 kg 91.3 kg General appearance: PRESENT: no acute distress, cooperative Neck exam: ABSENT: JVD Respiratory exam: PRESENT: clear to auscultation lilia Cardiovascular exam: PRESENT: +S1, +S2 GI/Abdominal exam: PRESENT: soft. ABSENT: rebound, rigid, tenderness Neurological exam: PRESENT: alert, awake, oriented to person, oriented to place, oriented to time Results Laboratory Results: WBC 16.7 10^3/uL (4.0-10.5) H 05/14/19 04:15 RBC 3.57 10^6/uL (4.35-5.55) L 05/14/19 04:15 Hgb 11.0 g/dL (13.5-17.0) L 05/14/19 04:15 Hct 31.9 % (37.9-51.0) L 05/14/19 04:15 MCV 89 fl (80-97) 05/14/19 04:15 MCH 30.7 pg (27.0-33.4) 05/14/19 04:15 MCHC 34.4 g/dL (32.0-36.0) 05/14/19 04:15 RDW 13.5 % (11.5-14.0) 05/14/19 04:15 Plt Count 600 10^3/uL (150-450) H 05/14/19 04:15 Lymph % (Auto) 13.3 % (13-45) 05/14/19 04:15 [place] % (Auto) 3.3 % (3-13) 05/14/19 04:15 Eos % (Auto) 2.4 % (0-6) 05/14/19 04:15 Baso % (Auto) 0.8 % (0-2) 05/14/19 04:15 Absolute Neuts (auto) 13.4 10^3/uL (1.7-8.2) H 05/14/19 04:15 Absolute Lymphs (auto) 2.2 10^3/uL (0.5-4.7) 05/14/19 04:15 Absolute Monos (auto) 0.5 10^3/uL (0.1-1.4) 05/14/19 04:15 Absolute Eos (auto) 0.4 10^3/uL (0.0-0.6) 05/14/19 04:15 Absolute Basos (auto) 0.1 10^3/uL (0.0-0.2) 05/14/19 04:15 Total Counted 100 05/13/19 05:37 Seg Neutrophils % 80.2 % (42-78) H 05/14/19 04:15 Seg Neuts % (Manual) 86 % (42-78) H 05/13/19 05:37 Lymphocytes % (Manual) 9 % (13-45) L 05/13/19 05:37 Atypical Lymphs % 3 % (0) 05/13/19 05:37 Monocytes % (Manual) 2 % (3-13) L 05/13/19 05:37 Eosinophils % (Manual) 0 % (0-6) 05/13/19 05:37 Basophils % (Manual) 0 % (0-2) 05/13/19 05:37 Abs Neuts (Manual) 22.4 10^3/uL (1.7-8.2) H 05/13/19 05:37 Abs Lymphs (Manual) 3.1 10^3/uL (0.5-4.7) 05/13/19 05:37 Abs Monocytes (Manual) 0.5 10^3/uL (0.1-1.4) 05/13/19 05:37 Absolute Eos (Manual) 0.0 10^3/uL (0.0-0.6) 05/13/19 05:37 Abs Basophils (Manual) 0.0 10^3/uL (0.0-0.2) 05/13/19 05:37 Toxic Granulation 1+ 05/11/19 21:13 Toxic Vacuolation PRESENT 05/11/19 21:13 Platelet Comment INCREASED 05/13/19 05:37 Polychromasia SLIGHT 05/13/19 05:37 Poikilocytosis SLIGHT 05/11/19 21:13 Tear Drop Cells SLIGHT 05/11/19 21:13 Ovalocytes SLIGHT 05/11/19 21:13 PT 13.6 SEC (11.4-15.4) 05/11/19 21:13 INR 1.04 05/11/19 21:13 VBG pH 7.46 (7.30-7.42) H 05/11/19 22:15 VBG pCO2 34.1 mmHg (35-63) L 05/11/19 22:15 VBG HCO3 23.7 mmol/L (20-32) 05/11/19 22:15 VBG Base Excess 0.5 mmol/L 05/11/19 22:15 Sodium 137.1 mmol/L (137-145) 05/14/19 04:15 Potassium 4.5 mmol/L (3.6-5.0) 05/14/19 04:15 Chloride 101 mmol/L (98-107) 05/14/19 04:15 Carbon Dioxide 28 mmol/L (22-30) 05/14/19 04:15 Anion Gap 8 (5-19) 05/14/19 04:15 BUN 12 mg/dL (7-20) 05/14/19 04:15 Creatinine 1.24 mg/dL (0.52-1.25) 05/14/19 04:15 Est GFR ( Amer) > 60 (>60) 05/14/19 04:15 Est GFR (MDRD) Non-Af 57 (>60) L 05/14/19 04:15 Glucose 101 mg/dL (75-110) 05/14/19 04:15 POC Glucose 168 mg/dL (70-110) H 05/14/19 11:49 Lactic Acid 1.3 mmol/L (0.7-2.1) 05/12/19 10:21 Calcium 8.8 mg/dL (8.4-10.2) 05/14/19 04:15 Magnesium 2.1 mg/dL (1.6-2.3) 05/13/19 05:37 Total Bilirubin 0.4 mg/dL (0.2-1.3) 05/11/19 21:13 Direct Bilirubin 0.1 mg/dL (0.0-0.4) 05/11/19 21:13 Neonat Total Bilirubin Not Reportable 05/11/19 21:13 Neonat Direct Bilirubin Not Reportable 05/11/19 21:13 Neonat Indirect Bili Not Reportable 05/11/19 21:13 AST 36 U/L (17-59) 05/11/19 21:13 ALT 67 U/L (<50) H 05/11/19 21:13 Alkaline Phosphatase 115 U/L (38-126) 05/11/19 21:13 Troponin I < 0.012 ng/mL 05/11/19 21:13 Total Protein 7.4 g/dL (6.3-8.2) 05/11/19 21:13 Albumin 4.1 g/dL (3.5-5.0) 05/11/19 21:13 Urine Color YELLOW 05/11/19 23:53 Urine Appearance CLOUDY 05/11/19 23:53 Urine pH 5.0 (5.0-9.0) 05/11/19 23:53 Ur Specific [place] 1.025 05/11/19 23:53 Urine Protein 100 mg/dL (NEGATIVE) H 05/11/19 23:53 Urine Glucose (UA) 50 mg/dL (NEGATIVE) H 05/11/19 23:53 Urine Ketones TRACE mg/dL (NEGATIVE) H 05/11/19 23:53 Urine Blood LARGE (NEGATIVE) H 05/11/19 23:53 Urine Nitrite (Reflex) NEGATIVE (NEGATIVE) 05/11/19 23:53 Urine Bilirubin NEGATIVE (NEGATIVE) 05/11/19 23:53 Urine Urobilinogen NEGATIVE mg/dL (<2.0) 05/11/19 23:53 Leukocyte Esterase Rfl LARGE (NEGATIVE) H 05/11/19 23:53 Urine RBC (Auto) 66 /HPF 05/11/19 23:53 Urine Bacteria (Auto) TRACE /HPF 05/11/19 23:53 Urine WBC (Reflex) > 182 /HPF 05/11/19 23:53 Urine WBC Clumps MOD /HPF 05/11/19 23:53 Squamous Epi Cells Auto 1 /HPF 05/11/19 23:53 Urine Mucus (Auto) FEW /LPF 05/11/19 23:53 Urine Ascorbic Acid 20 (NEGATIVE) H 05/11/19 23:53 05/11/19 21:13 Troponin I < 0.012 Impressions: Chest X-Ray 05/11/19 23:45 IMPRESSION: 1. No acute pulmonary findings. Plan Time Spent: Less than 30 Minutes Stroke Is this a Stroke Patient?: No Acute Heart Failure - Is this a Heart Failure Patient?: No
[2019-05-14 16:53] VITALS: BP 138/66
== END 2019-05-14 16:45 | disposition home or self-care (01) | DRG 728 ==
LOC: ER 21:48 → EH 05-12 03:24 → 4W 05-12 08:23
PROVIDERS: ADMIT Hospitalist; ATTEND Hospitalist
DX: N41.0 Acute prostatitis (principal); N17.9 Acute kidney failure, unspecified; N39.0 Urinary tract infection, site not specified; Z16.23 Resistance to quinolones and fluoroquinolones; E11.9 Type 2 diabetes mellitus without complications; E78.5 Hyperlipidemia, unspecified; B96.20 Unspecified Escherichia coli [E. coli] as the cause of diseases classified elsewhere; K62.89 Other specified diseases of anus and rectum; I10 Essential (primary) hypertension; Z66 Do not resuscitate; I25.10 Atherosclerotic heart disease of native coronary artery without angina pectoris; N40.0 Benign prostatic hyperplasia without lower urinary tract symptoms; F32.9 Major depressive disorder, single episode, unspecified; R31.9 Hematuria, unspecified; E87.5 Hyperkalemia; Z79.4 Long term (current) use of insulin; Z90.81 Acquired absence of spleen; Z87.891 Personal history of nicotine dependence; Z83.3 Family history of diabetes mellitus; Z82.49 Family history of ischemic heart disease and other diseases of the circulatory system; Z91.048 Other nonmedicinal substance allergy status
CPT/HCPCS: 36415; 71045; 80048; 80053; 81001; 82803; 82962; 83605; 83735; 84484; 85025; 85610; 87040; 87086; 87088; 87186; 93005; 93010; 96361; 96365; 96367; 99285; J1644; J1815; J2185; J2543; J3370; J3490; J7030; J7050; J7060; J7120

== ENCOUNTER → 2019-08-26 | Outpatient (CLI) | payer MEDICARE, OTHER ==
--- NOTE | 2019-08-26 12:02 | RADIOLOGY REPORT (SQ) ---
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 TECHNIQUE: CT scan of the abdomen performed with intravenous and with oral contrast using helical sc anning technique with dynamic intravenous contrast injection. Images reviewed with lung, soft tissue, and bone windows. Reconstructed coronal and sagittal MPR images reviewed. Delayed images for evaluat ion of the urinary system also acquired and evaluated. All images stored on PACS. All CT scanners at this facility use dose modulation, iterative reconstruc tion, and/or weight based dosing when appropriate to reduce radiation dose to as low as reasonably ac hievable (ALARA). [facility]: Dose Right [facility]: CareDose [facility]: Dose Right [facility]: Teradose 4D [facility]: [employer] CONTRAST TYPE AND DOSE: 100 mL Omnipaque 350- low osmolar. RENAL FUNCTION: Creatinine 1.2 milligrams/deciliter. RADIATION DOSE: CT Rad equipment meets quality standard of care and radiation dose reduction techniq ues were employed. CTDIvol: 9.8 - 9.8 mGy. DLP: 816 mGy-cm. LIMITATIONS: None. FINDINGS: LOWER CHEST: Atherosclerotic calcification of the coronary arteries. LIVER: The morphology of the liver is noncirrhotic. The diffuse low attenuation of the hepatic paren chyma is consistent with underlying hepatic steatosis. The portal veins are patent. There is no hep atic mass. 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 PANCREAS: No acute gross abnormality of the pancreas. GALLBLADDER: No abnormality that is apparent on CT. ADRENAL GLANDS: No mass or asymmetry. RIGHT KIDNEY AND URETER: No solid mass, hydronephrosis, nephrolithiasis, hydroureter or ureterolithia sis. LEFT KIDNEY AND URETER: No solid mass, hydronephrosis, nephrolithiasis, hydroureter or ureterolithias is AORTA AND VESSELS: No aneurysm of the abdominal aorta. RETROPERITONEUM: No retroperitoneal adenopathy, hemorrhage or mass. BOWEL AND PERITONEAL CAVITY: Status post partial gastrectomy. The wall of the transverse colon and s plenic flexure is thickened. There are diverticula throughout the descending and sigmoid colon. The re is no pericolonic/perienteric inflammation, mesenteric adenopathy, free intraperitoneal fluid or m esenteric/ omental inflammation. APPENDIX: Normal. ABDOMINAL WALL: Fat containing umbilical hernia. 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 OTHER: Periampullary duodenal diverticulum. IMPRESSION: 1. Status post splenectomy and partial gastrectomy. There is no evidence of recurrent d isease. 2. Segmental thickening of the wall of the transverse colon and splenic fracture. The finding is no nspecific and clinical correlation to exclude an infectious, inflammatory or ischemic colitis is russell mmended. 3. Colonic diverticulosis without diverticulitis and hepatic steatosis. TECHNICAL DOCUMENTATION: JOB ID: [id number] Quality ID # [id number]: Final reports with documentation of one or more dose reduction techniques (e.g., Au tomated exposure control, adjustment of the mA and/or kV according to patient size, use of iterative reconstruction technique) 2010 [employer]- All Rights Reserved Reading location - IP/workstation name: [email or web address]
== END ==
LOC: RAD 09:04
PROVIDERS: ATTEND Nurse Practitioner Family
DX: C49.A0 Gastrointestinal stromal tumor, unspecified site (principal); K42.9 Umbilical hernia without obstruction or gangrene; K57.30 Diverticulosis of large intestine without perforation or abscess without bleeding
CPT/HCPCS: 74160; 82565

== ENCOUNTER → 2020-02-26 | Outpatient (CLI) | payer MEDICARE, OTHER ==
--- NOTE | 2020-02-26 10:28 | RADIOLOGY REPORT (SQ) ---
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 Images reviewed with lung, soft tissue, and bone windows. Reconstructed coronal and sagittal MPR images reviewed. Delayed images for evaluat ion of the urinary system also acquired and evaluated. All images stored on PACS. All CT scanners at this facility use dose modulation, iterative reconstruc tion, and/or weight based dosing when appropriate to reduce radiation dose to as low as reasonably ac hievable (ALARA). [facility]: Dose Right [facility]: CareDose [facility]: Dose Right [facility]: Teradose 4D [facility]: [employer] CONTRAST TYPE AND DOSE: contrast/concentration: Isovue 350.00 mmol/ml; Total Contrast Delivered: 100 .0 ml; Total Saline Delivered: 72.0 ml RENAL FUNCTION: Creatinine 1.1 RADIATION DOSE: CT Rad equipment meets quality standard of care and radiation dose reduction techniq ues were employed. CTDIvol: 12.1 - 12.4 mGy. DLP: 790 mGy-cm. . LIMITATIONS: None. FINDINGS: LOWER CHEST: No significant findings. No nodules or infiltrates. LIVER: Hepatic steatosis. No focal masses. SPLEEN: Prior splenectomy. PANCREAS: No masses. No significant calcifications. No adjacent inflammation or peripancreatic fluid collections. Pancreatic duct not dilated. GALLBLADDER: No identified stones by CT criteria. No inflammatory changes to suggest cholecystitis. ADRENAL GLANDS: No significant masses or asymmetry. RIGHT KIDNEY AND URETER: No solid masses. No significant calcifications. No hydronephrosis or hyd roureter. LEFT KIDNEY AND URETER: No solid masses. No significant calcifications. No hydronephrosis or hydr oureter. AORTA AND VESSELS: No aneurysm. No dissection. Renal arteries, SMA, celiac without stenosis. RETROPERITONEUM: No retroperitoneal adenopathy, hemorrhage or masses. BOWEL AND PERITONEAL CAVITY: Postsurgical changes in the stomach. No mesenteric inflammation. Infre quent diverticuli. No acute diverticulitis. APPENDIX: Not visualized. ABDOMINAL WALL: Small umbilical hernia containing omental fat only. BONES: No significant or acute findings. OTHER: No other significant finding. IMPRESSION: Hepatic steatosis. Postsurgical changes with prior splenectomy and partial gastrectomy. No evidence of metastatic disease. TECHNICAL DOCUMENTATION: JOB ID: [id number] Quality ID # [id number]: Final reports with documentation of one or more dose reduction techniques (e.g., Au tomated exposure control, adjustment of the mA and/or kV according to patient size, use of iterative reconstruction technique) 2010 [employer]- All Rights Reserved Reading location - IP/workstation name: [email or web address]
== END ==
LOC: RAD 08:39
PROVIDERS: ATTEND Internal Medicine Hematology & Oncology
DX: C61 Malignant neoplasm of prostate (principal); C49.A0 Gastrointestinal stromal tumor, unspecified site; K76.0 Fatty (change of) liver, not elsewhere classified
CPT/HCPCS: 74160; 82565